=== PATIENT | male | born 1980 | race Caucasian/White ===

== ENCOUNTER 2019-07-27 12:35 | Emergency (ER) | payer SELFPAY ==
[~2019-07-27] VITALS: Ht 188 cm; Wt 113.4 kg
== END 2019-07-27 14:43 | disposition left against medical advice (07) ==
LOC: ER 12:35
DX: Z53.21 Procedure and treatment not carried out due to patient leaving prior to being seen by health care provider (principal); Z23 Encounter for immunization
CPT/HCPCS: 71046; 90471; 99283-25